=== PATIENT | female | born 1965 | race Caucasian/White ===

== ENCOUNTER 2017-06-20 08:07 | Day surgery (SDC) | payer OTHER ==
[2017-06-20] MEDS ORDERED: LIDOCAINE 2% (SDV) 5 ML INJ (09:57)
[2017-06-20] MEDS ORDERED: PROPOFOL 40 ML (09:57)
== END 2017-06-20 12:34 | disposition home or self-care (01) ==
LOC: GIL 08:07
DX: Z12.11 Encounter for screening for malignant neoplasm of colon (principal); I10 Essential (primary) hypertension; E11.9 Type 2 diabetes mellitus without complications; E78.5 Hyperlipidemia, unspecified; E66.01 Morbid (severe) obesity due to excess calories; Z68.42 Body mass index [BMI] 45.0-49.9, adult
CPT/HCPCS: 45378

== ENCOUNTER 2017-07-07 06:30 | Day surgery (SDC) | payer OTHER ==
[2017-07-07] MEDS: BUPIVACAINE 0.25% (MPF) 30 ML INJ INJ
[2017-07-07] MEDS ORDERED: PROCHLORPERAZINE 10 MG INJ IV (08:30)
[2017-07-07] MEDS ORDERED: DIPHENHYDRAMINE 50 MG INJ IV (08:30)
[2017-07-07] MEDS ORDERED: LABETALOL HCL 20MG INJ IV (08:30)
[2017-07-07] MEDS ORDERED: HYDROmorphONE (0.2 MG/ML) 10ML SYG IV ×3 (08:30)
[2017-07-07] MEDS ORDERED: FENTAnyl 50 MCG/ML VIAL IV ×3 (08:30)
[2017-07-07] MEDS ORDERED: hydrALAzine 20 MG INJ IV (08:30)
[2017-07-07] MEDS ORDERED: OXYCODONE/ACETAMINOPHEN (5/325) TAB PO ×4 (08:30→10:00)
[2017-07-07] MEDS ORDERED: ONDANSETRON 4 MG INJ IV ×2 (08:30→10:00)
[2017-07-07] MEDS ORDERED: LIDOCAINE 2% (SDV) 5 ML INJ (08:50)
[2017-07-07] MEDS ORDERED: SUCCINYLCHOLINE CHLORIDE 100 MG/5 ML SYG IV (08:50)
[2017-07-07] MEDS ORDERED: ROCURONIUM 50 MG INJ ×2 (08:50→09:05)
[2017-07-07] MEDS ORDERED: MIDAZOLAM 1 MG/ML 2 ML INJ (08:50)
[2017-07-07] MEDS ORDERED: FENTAnyl 50 MCG/ML VIAL (08:50)
[2017-07-07] MEDS ORDERED: PROPOFOL 20 ML (08:50)
[2017-07-07] MEDS ORDERED: ROPIVACAINE 0.5 % 30 ML VIAL (08:58)
[2017-07-07] MEDS ORDERED: CEFAZOLIN 1 GM INJ (09:10)
[2017-07-07] MEDS ORDERED: BUPIVACAINE 0.25% (MPF) 30 ML INJ (09:11)
[2017-07-07] MEDS ORDERED: FAMOTIDINE 20 MG INJ (09:13)
[2017-07-07] MEDS ORDERED: ONDANSETRON 4 MG INJ (09:13)
[2017-07-07] MEDS ORDERED: DEXAMETHASONE 4 MG/ML 1 ML INJ (09:13)
[2017-07-07] MEDS ORDERED: EPHEDrine SULFATE 50 MG/5 ML SYG (09:13)
[2017-07-07] MEDS ORDERED: SUGAMMADEX SODIUM 200 MG/2 ML VIAL IV ×2 (09:29→09:37)
[2017-07-07] MEDS ORDERED: KETOROLAC 30 MG INJ (09:39)
[2017-07-07] MEDS ORDERED: morphine 2 MG INJ IV (10:00)
[2017-07-07] MEDS: MEPERIDINE 25 MG INJ IV (10:14)
== END 2017-07-07 11:24 | disposition home or self-care (01) ==
LOC: SDS 06:30
DX: K81.1 Chronic cholecystitis (principal); E66.01 Morbid (severe) obesity due to excess calories; Z68.42 Body mass index [BMI] 45.0-49.9, adult
CPT/HCPCS: 47562; 88304